=== PATIENT | male | born 1945 | race Caucasian/White ===

== ENCOUNTER 2018-02-05 13:56 | Inpatient (IN) | payer MEDICARE ==
[~2018-02-05] VITALS: Ht 182.9 cm; Wt 104.3 kg
[~2018-02-05 13:56] MED LIST: ALPR-475 PO; CHOL500050 PO; CLON0.2T10 PO; CLON1TAB PO; DABI75CA3 PO; DOXA8TAB63 PO; ENAL10TA71 PO; FEBU40TA PO; FLAX340P PO; FURO20TA3 PO; GEMF600T3 PO; HYDR-3342 PO; LEVO25TA4 PO; METO25TA91 PO; POTA10TA PO; UBID100C24 PO; ZOLP10TA PO
[2018-02-05 17:13] VITALS: BP 119/85
[2018-02-05] MEDS ORDERED: LABETALOL 5MG/ML, 20ML IVPush PRN (18:00)
[2018-02-05] MEDS ORDERED: HYDROcodone/APAP 5/325 TABLET PO PRN (18:00)
[2018-02-05] MEDS ORDERED: ZOLPIDEM 10MG TABLET PO PRN (18:00)
[2018-02-05] MEDS ORDERED: ONDANSETRON 2MG/ML, 2ML IVPush PRN (18:00)
[2018-02-05] MEDS ORDERED: ACETAMINOPHEN 325 MG TABLET PO PRN (18:00)
[2018-02-05] MEDS ORDERED: PLEASE ENTER HEIGHT AND WEIGHT MC SCH (18:00)
[2018-02-05] MEDS ORDERED: hydrALAzine 20 MG/ML, 1ML IVPush PRN (18:00)
[2018-02-05 18:57] LABS: BASOPHILS # (AUTO) 0.05 x10^3/uL (0-0.1); BASOPHILS % (AUTO) 1 % (0-1); EOSINOPHILS # (AUTO) 0.08 x10^3/uL (0-0.4); EOSINOPHILS % (AUTO) 1 % (1-7); LYMPHOCYTES # (AUTO) 1.29 x10^3/uL (1-3.4); LYMPHOCYTES % (AUTO) 15 % (22-44); MD NO; MEAN CORPUSCULAR HGB CONC 33.8 g/dL (33.2-36.2); MEAN CORPUSCULAR VOLUME 100.6 fL (81-97); MEAN PLATELET VOLUME 9.3 fL (7.4-10.4); MONOCYTES # (AUTO) 1.26 x10^3/uL (0.2-0.8); MONOCYTES % (AUTO) 14 % (2-9); NEUTROPHILS % (AUTO) 70 % (42-75); PLATELET COUNT 198 x10^3/uL (130-400); RED BLOOD COUNT 3.18 x10^6/uL (4.38-5.82); RED CELL DISTRIBUTION WIDTH 17.6 % (9.4-14.8)
[2018-02-05 19:03] LABS: ALANINE AMINOTRANSFERASE 31 U/L (12-78); ALBUMIN 3.5 g/dL (3.4-5.0); ANION GAP 16 mmol/L (5-15); CALCIUM 9.9 mg/dL (8.5-10.1); CHLORIDE 94 mmol/L (98-107)
[2018-02-05 19:05] LABS: ALKALINE PHOSPHATASE 87 U/L (45-117); TOTAL PROTEIN 7.9 g/dL (6.4-8.2)
[2018-02-05 20:00] VITALS: BP 137/83
[2018-02-05] MEDS ORDERED: DABIGATRAN 75 MG CAPSULE PO SCH (21:00)
[2018-02-05] MEDS ORDERED: UBIDECARENONE 50 MG PO SCH (21:00)
[2018-02-05 21:33] VITALS: BP 124/79
[2018-02-05] MEDS: POTASSIUM CHLORIDE 20 MEQ TAB.ER.PRT PO SCH (22:03)
[2018-02-05] MEDS: DOXAZOSIN 2MG TABLET PO SCH (22:04)
[2018-02-05] MEDS: ENALAPRIL 20MG TABLET PO SCH (22:04)
[2018-02-05] MEDS: METOPROLOL SUCCINATE 25 MG TAB.ER.24H PO SCH (22:04)
[2018-02-05] MEDS: GEMFIBROZIL 600 MG TABLET PO SCH (22:05)
[2018-02-06] VITALS (13 sets, daily range): BP systolic 77–123; BP diastolic 44–77
[2018-02-06] MEDS ORDERED: SODIUM CHLORIDE 0.9%, 500ML IVBOLUS ONE (05:00)
[2018-02-06] MEDS ORDERED: LEVOTHYROXINE 25 MCG TABLET PO SCH (09:00)
[2018-02-06] MEDS: METOPROLOL SUCCINATE 25 MG TAB.ER.24H PO SCH (09:00)
[2018-02-06] MEDS: DOXAZOSIN 2MG TABLET PO SCH (09:00)
[2018-02-06] MEDS ORDERED: FUROSEMIDE 20 MG TABLET PO SCH (09:00)
[2018-02-06] MEDS ORDERED: FLAXSEED PO SCH (09:00)
[2018-02-06] MEDS: ENALAPRIL 20MG TABLET PO SCH (09:00)
[2018-02-06] MEDS ORDERED: FEBUXOSTAT 40 MG TABLET PO SCH (09:00)
[2018-02-06] MEDS: POTASSIUM CHLORIDE 20 MEQ TAB.ER.PRT PO SCH (09:31)
[2018-02-06] MEDS: GEMFIBROZIL 600 MG TABLET PO SCH (09:36)
[2018-02-06 11:07] LABS: INTERNATIONAL NORMALIZED RATIO 1.49 (0.93-1.1); PROTHROMBIN TIME 15.4 Seconds (9.6-11.5)
[2018-02-06] MEDS ORDERED: CALCIUM ACETATE 667 MG CAPSULE PO SCH ×2 (13:25→16:00)
[2018-02-06] MEDS ORDERED: WARF5TAB PO-COUM (14:16)
[2018-02-06] MEDS ORDERED: CALC667C PO (14:16)
[2018-02-06] MEDS ORDERED: WARFARIN 5 MG TABLET PO-COUM SCH (18:00)
[2018-02-07] MEDS ORDERED: ERGOCALCIFEROL 50,000 UNIT CAPSULE PO SCH (09:00)
== END 2018-02-06 18:39 | DRG 308 ==
LOC: 5SO 17:10
PROVIDERS: ADMIT Hospitalist; ATTEND Internal Medicine
DX: I48.91 Unspecified atrial fibrillation (principal); N18.6 End stage renal disease; R45.851 Suicidal ideations; I12.0 Hypertensive chronic kidney disease with stage 5 chronic kidney disease or end stage renal disease; E03.9 Hypothyroidism, unspecified; E11.22 Type 2 diabetes mellitus with diabetic chronic kidney disease; E11.40 Type 2 diabetes mellitus with diabetic neuropathy, unspecified; E78.5 Hyperlipidemia, unspecified; F41.9 Anxiety disorder, unspecified; D63.1 Anemia in chronic kidney disease; F32.9 Major depressive disorder, single episode, unspecified; Z96.619 Presence of unspecified artificial shoulder joint; G47.30 Sleep apnea, unspecified; Z80.9 Family history of malignant neoplasm, unspecified; Z82.49 Family history of ischemic heart disease and other diseases of the circulatory system; Z91.19 Patient's noncompliance with other medical treatment and regimen; Z99.2 Dependence on renal dialysis; Z90.89 Acquired absence of other organs; Z95.828 Presence of other vascular implants and grafts
CPT/HCPCS: 36415; 70450; 80053; 82962; 85025; 85610; 86704; 86706; 86803; 87340; 93005; 93306; J2405; J7040

== ENCOUNTER 2018-02-06 13:50 | Inpatient (IN) | payer MEDICARE ==
[~2018-02-06] VITALS: Ht 182.9 cm; Wt 101.7 kg
[~2018-02-06 13:50] MED LIST changes: -GEMF600T3 PO; +GEMF600T4 PO
[2018-02-06] MEDS ORDERED: WARF5TAB PO-COUM (14:16)
[2018-02-06] MEDS ORDERED: CALC667C PO (14:16)
[2018-02-06 20:00] VITALS: BP 113/68
[2018-02-06] MEDS ORDERED: ACETAMINOPHEN 325 MG TABLET PO PRN (20:30)
[2018-02-06] MEDS ORDERED: WARFARIN 5 MG TABLET PO-COUM SCH (20:30)
[2018-02-06] MEDS ORDERED: DOCUSATE 100 MG CAPSULE PO PRN (20:30)
[2018-02-06] MEDS ORDERED: HYDROcodone/APAP 5/325 TABLET PO PRN (20:30)
[2018-02-06] MEDS ORDERED: ZOLPIDEM 5MG TABLET PO PRN (20:30)
[2018-02-06] MEDS ORDERED: ONDANSETRON 2MG/ML, 2ML IVPush PRN (20:30)
[2018-02-06] MEDS ORDERED: DOXAZOSIN 2MG TABLET PO SCH (21:00)
[2018-02-06] MEDS ORDERED: METOPROLOL SUCCINATE 25 MG TAB.ER.24H PO SCH (21:00)
[2018-02-06 21:43] VITALS: BP 98/76
[2018-02-06] MEDS ORDERED: POLYETHYLENE GLYCOL 17 GM PACKET PO PRN (22:30)
[2018-02-06] MEDS ORDERED: BISACODYL 10 MG SUPP PR PRN (22:30)
[2018-02-06 22:35] VITALS: BP 129/70
[2018-02-06] MEDS: METOPROLOL SUCCINATE 25 MG TAB.ER.24H PO SCH (22:42)
[2018-02-07] MEDS: LEVOTHYROXINE 25 MCG TABLET PO SCH (05:14)
[2018-02-07 05:29] LABS: INTERNATIONAL NORMALIZED RATIO 1.4 (0.93-1.1); PROTHROMBIN TIME 14.5 Seconds (9.6-11.5)
[2018-02-07 06:10] LABS: CHOL/HDL RATIO 5.1; FOLATE LEVEL 7.1 ng/mL (3.1-17.5); FREE T4 (FREE THYROXINE) 1.11 ng/dL (0.76-1.46); LDL/HDL RATIO 2.7 (0.5-3.0); THYROID STIMULATING HORMONE 2.08 mIU/L (0.358-3.740)
[2018-02-07 07:38] VITALS: BP 106/58
[2018-02-07] MEDS: CALCIUM ACETATE 667 MG CAPSULE PO SCH ×3 (07:51→17:13)
[2018-02-07] MEDS: GEMFIBROZIL 600 MG TABLET PO SCH ×2 (08:39→20:34)
[2018-02-07] MEDS: DABIGATRAN 150 MG CAPSULE PO SCH ×2 (08:39→20:34)
[2018-02-07] MEDS: ERGOCALCIFEROL 50,000 UNIT CAPSULE PO SCH (08:40)
[2018-02-07] MEDS: FEBUXOSTAT 40 MG TABLET PO SCH (08:40)
[2018-02-07] MEDS ORDERED: CALCIUM ACETATE 667 MG CAPSULE PO SCH (09:00)
[2018-02-07 17:33] LABS: MICROSCOPIC AUTO
[2018-02-07 17:38] LABS: CULTURE INDICATED? NO
[2018-02-07 19:59] VITALS: BP 106/63
[2018-02-07] MEDS: SODIUM CHLORIDE FLUSH 10ML SYR IVF SCH (20:34)
[2018-02-08] MEDS: LEVOTHYROXINE 25 MCG TABLET PO SCH (06:14)
[2018-02-08 07:23] VITALS: BP 132/83
[2018-02-08] MEDS: CALCIUM ACETATE 667 MG CAPSULE PO SCH ×4 (08:12→21:34)
[2018-02-08] MEDS: SODIUM CHLORIDE FLUSH 10ML SYR IVF SCH ×2 (09:00→21:00)
[2018-02-08] MEDS: DABIGATRAN 150 MG CAPSULE PO SCH ×2 (09:01→21:33)
[2018-02-08] MEDS: SERTRALINE 50MG TABLET PO SCH (09:01)
[2018-02-08] MEDS: FEBUXOSTAT 40 MG TABLET PO SCH (09:01)
[2018-02-08] MEDS: METOPROLOL SUCCINATE 25 MG TAB.ER.24H PO SCH (09:01)
[2018-02-08] MEDS: GEMFIBROZIL 600 MG TABLET PO SCH ×2 (09:06→21:33)
[2018-02-08 16:20] LABS: ALANINE AMINOTRANSFERASE 49 U/L (12-78); ALBUMIN 3.3 g/dL (3.4-5.0); ANION GAP 12 mmol/L (5-15); CALCIUM 10.4 mg/dL (8.5-10.1); CHLORIDE 98 mmol/L (98-107)
[2018-02-08 16:22] LABS: ALKALINE PHOSPHATASE 77 U/L (45-117); BILIRUBIN,TOTAL 0.6 mg/dL (0.2-1.0)
[2018-02-08 16:49] LABS: BASOPHILS # (AUTO) 0.02 x10^3/uL (0-0.1); BASOPHILS % (AUTO) 0 % (0-1); EOSINOPHILS # (AUTO) 0.08 x10^3/uL (0-0.4); EOSINOPHILS % (AUTO) 1 % (1-7); LYMPHOCYTES # (AUTO) 0.79 x10^3/uL (1-3.4); LYMPHOCYTES % (AUTO) 14 % (22-44); MD NO; MEAN CORPUSCULAR HEMOGLOBIN 34.9 pg (27.5-34.5); MEAN CORPUSCULAR HGB CONC 34.6 g/dL (33.2-36.2); MEAN CORPUSCULAR VOLUME 100.9 fL (81-97); MEAN PLATELET VOLUME 8.9 fL (7.4-10.4); MONOCYTES # (AUTO) 0.85 x10^3/uL (0.2-0.8); MONOCYTES % (AUTO) 15 % (2-9); NEUTROPHILS # (AUTO) 3.91 x10^3/uL (1.8-6.8); NEUTROPHILS % (AUTO) 69 % (42-75); PLATELET COUNT 167 x10^3/uL (130-400); RED BLOOD COUNT 2.61 x10^6/uL (4.38-5.82); RED CELL DISTRIBUTION WIDTH 17.7 % (9.4-14.8)
[2018-02-08 19:57] VITALS: BP 133/81
[2018-02-09] MEDS: LEVOTHYROXINE 25 MCG TABLET PO SCH (05:45)
[2018-02-09 07:53] VITALS: BP 137/78
[2018-02-09] MEDS: CALCIUM ACETATE 667 MG CAPSULE PO SCH ×3 (08:26→17:04)
[2018-02-09] MEDS: METOPROLOL SUCCINATE 25 MG TAB.ER.24H PO SCH (08:27)
[2018-02-09] MEDS: DABIGATRAN 150 MG CAPSULE PO SCH ×2 (08:27→19:47)
[2018-02-09] MEDS: GEMFIBROZIL 600 MG TABLET PO SCH ×2 (08:27→19:48)
[2018-02-09] MEDS: FEBUXOSTAT 40 MG TABLET PO SCH (08:27)
[2018-02-09] MEDS: SERTRALINE 50MG TABLET PO SCH (08:27)
[2018-02-09] MEDS: SODIUM CHLORIDE FLUSH 10ML SYR IVF SCH (08:35)
[2018-02-09 13:56] VITALS: BP 120/63
[2018-02-09 19:30] VITALS: BP 110/71
[2018-02-10] MEDS: LEVOTHYROXINE 25 MCG TABLET PO SCH (05:50)
[2018-02-10] MEDS: CALCIUM ACETATE 667 MG CAPSULE PO SCH ×3 (08:10→17:07)
[2018-02-10 08:40] VITALS: BP 150/106
[2018-02-10] MEDS: DABIGATRAN 150 MG CAPSULE PO SCH ×2 (09:16→21:34)
[2018-02-10] MEDS: GEMFIBROZIL 600 MG TABLET PO SCH ×2 (09:16→21:34)
[2018-02-10] MEDS: FEBUXOSTAT 40 MG TABLET PO SCH (09:17)
[2018-02-10] MEDS: SERTRALINE 50MG TABLET PO SCH (09:17)
[2018-02-10] MEDS: METOPROLOL SUCCINATE 25 MG TAB.ER.24H PO SCH (09:17)
[2018-02-10] MEDS: GABAPENTIN 100 MG CAPSULE PO SCH (18:39)
[2018-02-10 20:00] VITALS: BP 141/85
[2018-02-11] MEDS: LEVOTHYROXINE 25 MCG TABLET PO SCH (05:50)
[2018-02-11] MEDS: CALCIUM ACETATE 667 MG CAPSULE PO SCH ×3 (07:42→16:57)
[2018-02-11] MEDS: FEBUXOSTAT 40 MG TABLET PO SCH (07:53)
[2018-02-11] MEDS: DABIGATRAN 150 MG CAPSULE PO SCH ×2 (07:53→20:40)
[2018-02-11] MEDS: METOPROLOL SUCCINATE 25 MG TAB.ER.24H PO SCH (07:53)
[2018-02-11] MEDS: SERTRALINE 50MG TABLET PO SCH (07:54)
[2018-02-11] MEDS: GEMFIBROZIL 600 MG TABLET PO SCH ×2 (07:54→20:40)
[2018-02-11 07:57] VITALS: BP 164/106
[2018-02-11 13:11] VITALS: BP 136/88
[2018-02-11] MEDS: GABAPENTIN 100 MG CAPSULE PO SCH (17:00)
[2018-02-11 19:35] VITALS: BP 123/78
[2018-02-12] MEDS: LEVOTHYROXINE 25 MCG TABLET PO SCH (05:24)
[2018-02-12] MEDS: CALCIUM ACETATE 667 MG CAPSULE PO SCH ×3 (07:48→16:51)
[2018-02-12 07:51] VITALS: BP 166/84
[2018-02-12] MEDS: FEBUXOSTAT 40 MG TABLET PO SCH (09:23)
[2018-02-12] MEDS: DABIGATRAN 150 MG CAPSULE PO SCH ×2 (09:23→20:18)
[2018-02-12] MEDS: GEMFIBROZIL 600 MG TABLET PO SCH ×2 (09:24→20:17)
[2018-02-12] MEDS: METOPROLOL SUCCINATE 25 MG TAB.ER.24H PO SCH (09:24)
[2018-02-12] MEDS: SERTRALINE 50MG TABLET PO SCH (09:24)
[2018-02-12 19:47] VITALS: BP 159/95
[2018-02-12] MEDS: GABAPENTIN 100 MG CAPSULE PO SCH (20:17)
[2018-02-12] MEDS: DOXEPIN 25 MG CAPSULE PO SCH (20:18)
[2018-02-13] MEDS: LEVOTHYROXINE 25 MCG TABLET PO SCH (05:08)
[2018-02-13 05:55] LABS: BASOPHILS # (AUTO) 0.03 x10^3/uL (0-0.1); BASOPHILS % (AUTO) 0 % (0-1); EOSINOPHILS # (AUTO) 0.09 x10^3/uL (0-0.4); EOSINOPHILS % (AUTO) 1 % (1-7); LYMPHOCYTES # (AUTO) 1.14 x10^3/uL (1-3.4); LYMPHOCYTES % (AUTO) 15 % (22-44); MD NO; MEAN CORPUSCULAR HEMOGLOBIN 34.2 pg (27.5-34.5); MEAN CORPUSCULAR HGB CONC 33.6 g/dL (33.2-36.2); MEAN CORPUSCULAR VOLUME 101.9 fL (81-97); MEAN PLATELET VOLUME 8.6 fL (7.4-10.4); MONOCYTES # (AUTO) 1.14 x10^3/uL (0.2-0.8); MONOCYTES % (AUTO) 15 % (2-9); NEUTROPHILS # (AUTO) 5.23 x10^3/uL (1.8-6.8); NEUTROPHILS % (AUTO) 69 % (42-75); PLATELET COUNT 197 x10^3/uL (130-400); RED BLOOD COUNT 2.89 x10^6/uL (4.38-5.82)
[2018-02-13 06:05] LABS: ALBUMIN 3.3 g/dL (3.4-5.0); CHLORIDE 96 mmol/L (98-107)
[2018-02-13 06:08] LABS: ANION GAP 14 mmol/L (5-15); CALCIUM 11.2 mg/dL (8.5-10.1); CREATININE 9.63 mg/dL (0.7-1.3)
[2018-02-13 07:42] VITALS: BP 150/87
[2018-02-13] MEDS: CALCIUM ACETATE 667 MG CAPSULE PO SCH ×3 (08:06→18:03)
[2018-02-13] MEDS: FEBUXOSTAT 40 MG TABLET PO SCH (08:33)
[2018-02-13] MEDS: GEMFIBROZIL 600 MG TABLET PO SCH ×2 (08:33→20:29)
[2018-02-13] MEDS: METOPROLOL SUCCINATE 25 MG TAB.ER.24H PO SCH (08:33)
[2018-02-13] MEDS: DABIGATRAN 150 MG CAPSULE PO SCH ×2 (08:33→20:29)
[2018-02-13] MEDS: SERTRALINE 50MG TABLET PO SCH (08:34)
[2018-02-13] MEDS: GABAPENTIN 100 MG CAPSULE PO SCH (18:03)
[2018-02-13 18:36] VITALS: BP 139/81
[2018-02-13 19:39] VITALS: BP 125/82
[2018-02-13] MEDS: DOXEPIN 25 MG CAPSULE PO SCH (20:30)
[2018-02-14] MEDS: LEVOTHYROXINE 25 MCG TABLET PO SCH (05:37)
[2018-02-14 08:06] VITALS: BP 158/94
[2018-02-14] MEDS: CALCIUM ACETATE 667 MG CAPSULE PO SCH ×3 (08:53→17:05)
[2018-02-14] MEDS: METOPROLOL SUCCINATE 25 MG TAB.ER.24H PO SCH (08:53)
[2018-02-14] MEDS: ERGOCALCIFEROL 50,000 UNIT CAPSULE PO SCH (08:53)
[2018-02-14] MEDS: FEBUXOSTAT 40 MG TABLET PO SCH (08:54)
[2018-02-14] MEDS: DABIGATRAN 150 MG CAPSULE PO SCH ×2 (08:55→20:33)
[2018-02-14] MEDS: SERTRALINE 50MG TABLET PO SCH (08:55)
[2018-02-14] MEDS: GEMFIBROZIL 600 MG TABLET PO SCH ×2 (08:55→20:34)
[2018-02-14] MEDS: GABAPENTIN 100 MG CAPSULE PO SCH (18:01)
[2018-02-14 19:39] VITALS: BP 140/85
[2018-02-14] MEDS: DOXEPIN 25 MG CAPSULE PO SCH (20:33)
[2018-02-15] MEDS: LEVOTHYROXINE 25 MCG TABLET PO SCH (05:38)
[2018-02-15 07:45] VITALS: BP 150/93
[2018-02-15] MEDS: CALCIUM ACETATE 667 MG CAPSULE PO SCH ×3 (08:09→17:10)
[2018-02-15] MEDS: FEBUXOSTAT 40 MG TABLET PO SCH (08:47)
[2018-02-15] MEDS: GEMFIBROZIL 600 MG TABLET PO SCH ×2 (08:47→20:49)
[2018-02-15] MEDS: SERTRALINE 50MG TABLET PO SCH (08:47)
[2018-02-15] MEDS: METOPROLOL SUCCINATE 25 MG TAB.ER.24H PO SCH (08:47)
[2018-02-15] MEDS: DABIGATRAN 150 MG CAPSULE PO SCH ×2 (08:48→20:49)
[2018-02-15] MEDS: GUAIFENESIN ER 600 MG TABLET PO SCH ×2 (12:00→20:49)
[2018-02-15 16:00] VITALS: BP 133/83
[2018-02-15] MEDS: GABAPENTIN 100 MG CAPSULE PO SCH (18:33)
[2018-02-15 20:01] VITALS: BP 143/104
[2018-02-15] MEDS: DOXEPIN 25 MG CAPSULE PO SCH (20:49)
[2018-02-16] MEDS: LEVOTHYROXINE 25 MCG TABLET PO SCH (05:38)
[2018-02-16 06:23] LABS: BASOPHILS # (AUTO) 0.08 x10^3/uL (0-0.1); BASOPHILS % (AUTO) 1 % (0-1); EOSINOPHILS # (AUTO) 0.06 x10^3/uL (0-0.4); EOSINOPHILS % (AUTO) 1 % (1-7); LYMPHOCYTES # (AUTO) 1.04 x10^3/uL (1-3.4); LYMPHOCYTES % (AUTO) 12 % (22-44); MD NO; MEAN CORPUSCULAR HEMOGLOBIN 33.9 pg (27.5-34.5); MEAN CORPUSCULAR HGB CONC 33.5 g/dL (33.2-36.2); MEAN PLATELET VOLUME 8.9 fL (7.4-10.4); MONOCYTES # (AUTO) 1.15 x10^3/uL (0.2-0.8); MONOCYTES % (AUTO) 13 % (2-9); NEUTROPHILS # (AUTO) 6.65 x10^3/uL (1.8-6.8); NEUTROPHILS % (AUTO) 74 % (42-75); PLATELET COUNT 201 x10^3/uL (130-400); RED BLOOD COUNT 3.14 x10^6/uL (4.38-5.82); RED CELL DISTRIBUTION WIDTH 17.4 % (9.4-14.8)
[2018-02-16 06:34] LABS: ALBUMIN 3.5 g/dL (3.4-5.0); ANION GAP 13 mmol/L (5-15); CALCIUM 12.9 mg/dL (8.5-10.1); CHLORIDE 99 mmol/L (98-107)
[2018-02-16 07:38] VITALS: BP 159/92
[2018-02-16] MEDS: CALCIUM ACETATE 667 MG CAPSULE PO SCH ×3 (07:51→19:40)
[2018-02-16] MEDS: FEBUXOSTAT 40 MG TABLET PO SCH (08:29)
[2018-02-16] MEDS: SERTRALINE 50MG TABLET PO SCH (08:29)
[2018-02-16] MEDS: GUAIFENESIN ER 600 MG TABLET PO SCH ×2 (08:29→20:36)
[2018-02-16] MEDS: DABIGATRAN 150 MG CAPSULE PO SCH ×2 (08:29→20:36)
[2018-02-16] MEDS: GEMFIBROZIL 600 MG TABLET PO SCH ×2 (08:29→20:36)
[2018-02-16] MEDS: METOPROLOL SUCCINATE 25 MG TAB.ER.24H PO SCH (09:36)
[2018-02-16] MEDS: GABAPENTIN 100 MG CAPSULE PO SCH (19:40)
[2018-02-16 19:50] VITALS: BP 146/85
[2018-02-16] MEDS: DOXEPIN 25 MG CAPSULE PO SCH (20:37)
[2018-02-16] MEDS ORDERED: SODIUM CHLORIDE FLUSH 10ML SYR IVF SCH (21:00)
[2018-02-17] MEDS: LEVOTHYROXINE 25 MCG TABLET PO SCH (05:38)
[2018-02-17 07:37] VITALS: BP 149/99
[2018-02-17] MEDS: CALCIUM ACETATE 667 MG CAPSULE PO SCH ×3 (07:48→16:52)
[2018-02-17] MEDS: FEBUXOSTAT 40 MG TABLET PO SCH (08:11)
[2018-02-17] MEDS: SERTRALINE 100MG TABLET PO SCH (08:12)
[2018-02-17] MEDS: GEMFIBROZIL 600 MG TABLET PO SCH ×2 (08:12→21:34)
[2018-02-17] MEDS: DABIGATRAN 150 MG CAPSULE PO SCH ×2 (08:12→21:34)
[2018-02-17] MEDS: GUAIFENESIN ER 600 MG TABLET PO SCH ×2 (08:12→21:34)
[2018-02-17] MEDS: METOPROLOL SUCCINATE 25 MG TAB.ER.24H PO SCH (08:12)
[2018-02-17] MEDS: GABAPENTIN 100 MG CAPSULE PO SCH (16:53)
[2018-02-17 20:18] VITALS: BP 160/93
[2018-02-17] MEDS: DOXEPIN 25 MG CAPSULE PO SCH (21:34)
[2018-02-18] MEDS: LEVOTHYROXINE 25 MCG TABLET PO SCH (06:39)
[2018-02-18 07:20] VITALS: BP 157/103
[2018-02-18] MEDS: CALCIUM ACETATE 667 MG CAPSULE PO SCH ×3 (07:48→17:53)
[2018-02-18] MEDS: SERTRALINE 100MG TABLET PO SCH (08:39)
[2018-02-18] MEDS: DABIGATRAN 150 MG CAPSULE PO SCH ×2 (08:39→20:55)
[2018-02-18] MEDS: GUAIFENESIN ER 600 MG TABLET PO SCH ×2 (08:39→20:53)
[2018-02-18] MEDS: METOPROLOL SUCCINATE 25 MG TAB.ER.24H PO SCH (08:39)
[2018-02-18] MEDS: FEBUXOSTAT 40 MG TABLET PO SCH (08:39)
[2018-02-18] MEDS: GEMFIBROZIL 600 MG TABLET PO SCH ×2 (08:39→20:55)
[2018-02-18] MEDS: GABAPENTIN 100 MG CAPSULE PO SCH (18:17)
[2018-02-18 19:41] VITALS: BP 131/77
[2018-02-18] MEDS: DOXEPIN 25 MG CAPSULE PO SCH (20:55)
[2018-02-19] MEDS: LEVOTHYROXINE 25 MCG TABLET PO SCH (05:19)
[2018-02-19 07:00] VITALS: BP 151/95
[2018-02-19] MEDS: FEBUXOSTAT 40 MG TABLET PO SCH (08:04)
[2018-02-19] MEDS: CALCIUM ACETATE 667 MG CAPSULE PO SCH ×3 (08:08→17:01)
[2018-02-19] MEDS: GUAIFENESIN ER 600 MG TABLET PO SCH ×2 (08:08→20:20)
[2018-02-19] MEDS: DABIGATRAN 150 MG CAPSULE PO SCH ×2 (08:08→20:21)
[2018-02-19] MEDS: SERTRALINE 100MG TABLET PO SCH (08:08)
[2018-02-19] MEDS: GEMFIBROZIL 600 MG TABLET PO SCH ×2 (08:09→20:21)
[2018-02-19] MEDS: METOPROLOL SUCCINATE 25 MG TAB.ER.24H PO SCH (08:09)
[2018-02-19] MEDS: GABAPENTIN 100 MG CAPSULE PO SCH (17:01)
[2018-02-19 19:52] VITALS: BP 151/91
[2018-02-19] MEDS: DOXEPIN 25 MG CAPSULE PO SCH (20:21)
[2018-02-20] MEDS: LEVOTHYROXINE 25 MCG TABLET PO SCH (04:26)
[2018-02-20 07:25] VITALS: BP 152/82
[2018-02-20] MEDS: CALCIUM ACETATE 667 MG CAPSULE PO SCH ×3 (08:04→17:00)
[2018-02-20] MEDS: SERTRALINE 100MG TABLET PO SCH (09:20)
[2018-02-20] MEDS: FEBUXOSTAT 40 MG TABLET PO SCH (09:20)
[2018-02-20] MEDS: DABIGATRAN 150 MG CAPSULE PO SCH ×2 (09:21→20:31)
[2018-02-20] MEDS: METOPROLOL SUCCINATE 25 MG TAB.ER.24H PO SCH (09:21)
[2018-02-20] MEDS: GUAIFENESIN ER 600 MG TABLET PO SCH ×2 (09:22→20:31)
[2018-02-20] MEDS: GEMFIBROZIL 600 MG TABLET PO SCH ×2 (09:33→20:31)
[2018-02-20] MEDS: GABAPENTIN 100 MG CAPSULE PO SCH (18:00)
[2018-02-20 20:00] VITALS: BP 139/86
[2018-02-20] MEDS: DOXEPIN 25 MG CAPSULE PO SCH (20:30)
[2018-02-20] MEDS ORDERED: CALCIUM ACETATE 667 MG CAPSULE PO ONE (21:00)
[2018-02-21] MEDS: LEVOTHYROXINE 25 MCG TABLET PO SCH (06:15)
[2018-02-21 07:53] VITALS: BP 162/87
[2018-02-21] MEDS: CALCIUM ACETATE 667 MG CAPSULE PO SCH ×3 (08:07→17:15)
[2018-02-21] MEDS: SERTRALINE 100MG TABLET PO SCH (08:07)
[2018-02-21] MEDS: GEMFIBROZIL 600 MG TABLET PO SCH ×2 (08:07→19:51)
[2018-02-21] MEDS: METOPROLOL SUCCINATE 25 MG TAB.ER.24H PO SCH (08:08)
[2018-02-21] MEDS: ERGOCALCIFEROL 50,000 UNIT CAPSULE PO SCH (08:08)
[2018-02-21] MEDS: DABIGATRAN 150 MG CAPSULE PO SCH ×2 (08:08→19:51)
[2018-02-21] MEDS: FEBUXOSTAT 40 MG TABLET PO SCH (08:08)
[2018-02-21] MEDS: GUAIFENESIN ER 600 MG TABLET PO SCH ×2 (08:09→19:51)
[2018-02-21] MEDS: GABAPENTIN 100 MG CAPSULE PO SCH (17:54)
[2018-02-21] MEDS: DOXEPIN 25 MG CAPSULE PO SCH (19:51)
[2018-02-21 19:53] VITALS: BP 152/85
[2018-02-22] MEDS: LEVOTHYROXINE 25 MCG TABLET PO SCH (05:41)
[2018-02-22 05:48] LABS: BASOPHILS # (AUTO) 0.07 x10^3/uL (0-0.1); BASOPHILS % (AUTO) 1 % (0-1); EOSINOPHILS # (AUTO) 0.11 x10^3/uL (0-0.4); EOSINOPHILS % (AUTO) 1 % (1-7); LYMPHOCYTES % (AUTO) 15 % (22-44); MD NO; MEAN CORPUSCULAR HGB CONC 33.3 g/dL (33.2-36.2); MEAN CORPUSCULAR VOLUME 99.1 fL (81-97); MEAN PLATELET VOLUME 9.1 fL (7.4-10.4); MONOCYTES # (AUTO) 1.24 x10^3/uL (0.2-0.8); MONOCYTES % (AUTO) 16 % (2-9); NEUTROPHILS # (AUTO) 5.25 x10^3/uL (1.8-6.8); NEUTROPHILS % (AUTO) 67 % (42-75); PLATELET COUNT 195 x10^3/uL (130-400); RED BLOOD COUNT 3.17 x10^6/uL (4.38-5.82); RED CELL DISTRIBUTION WIDTH 17.6 % (9.4-14.8)
[2018-02-22 06:01] LABS: ALBUMIN 3.4 g/dL (3.4-5.0); ANION GAP 11 mmol/L (5-15); CALCIUM 11.4 mg/dL (8.5-10.1); CHLORIDE 99 mmol/L (98-107); CREATININE 8.16 mg/dL (0.7-1.3); IRON LEVEL 48 mcg/dL (65-175)
[2018-02-22 06:05] LABS: % IRON SATURATION 14 % (20-55); TOTAL IRON BINDING CAPACITY 336 mcg/dL (250-450)
[2018-02-22 08:06] VITALS: BP 168/103
[2018-02-22] MEDS: CALCIUM ACETATE 667 MG CAPSULE PO SCH ×3 (08:17→17:02)
[2018-02-22] MEDS: SERTRALINE 100MG TABLET PO SCH (08:26)
[2018-02-22] MEDS: GEMFIBROZIL 600 MG TABLET PO SCH ×2 (08:26→20:55)
[2018-02-22] MEDS: DABIGATRAN 150 MG CAPSULE PO SCH ×2 (08:27→20:55)
[2018-02-22] MEDS: GUAIFENESIN ER 600 MG TABLET PO SCH ×2 (08:29→20:55)
[2018-02-22] MEDS: METOPROLOL SUCCINATE 25 MG TAB.ER.24H PO SCH (08:30)
[2018-02-22] MEDS: FEBUXOSTAT 40 MG TABLET PO SCH (08:31)
[2018-02-22 14:07] VITALS: BP 150/84
[2018-02-22] MEDS: GABAPENTIN 100 MG CAPSULE PO SCH (18:03)
[2018-02-22 19:37] VITALS: BP 154/99
[2018-02-22] MEDS: DOXEPIN 25 MG CAPSULE PO SCH (20:55)
[2018-02-23] MEDS: LEVOTHYROXINE 25 MCG TABLET PO SCH (05:43)
[2018-02-23 05:52] LABS: BASOPHILS # (AUTO) 0.03 x10^3/uL (0-0.1); BASOPHILS % (AUTO) 0 % (0-1); CHLORIDE 97 mmol/L (98-107); EOSINOPHILS % (AUTO) 1 % (1-7); LYMPHOCYTES # (AUTO) 1.15 x10^3/uL (1-3.4); LYMPHOCYTES % (AUTO) 15 % (22-44); MD NO; MEAN CORPUSCULAR HEMOGLOBIN 32.8 pg (27.5-34.5); MEAN CORPUSCULAR HGB CONC 33.1 g/dL (33.2-36.2); MEAN CORPUSCULAR VOLUME 98.8 fL (81-97); MEAN PLATELET VOLUME 9.5 fL (7.4-10.4); MONOCYTES # (AUTO) 1.11 x10^3/uL (0.2-0.8); MONOCYTES % (AUTO) 14 % (2-9); NEUTROPHILS # (AUTO) 5.58 x10^3/uL (1.8-6.8); NEUTROPHILS % (AUTO) 70 % (42-75); PLATELET COUNT 193 x10^3/uL (130-400); RED BLOOD COUNT 3.05 x10^6/uL (4.38-5.82); RED CELL DISTRIBUTION WIDTH 17.1 % (9.4-14.8)
[2018-02-23 05:57] LABS: ALBUMIN 3.4 g/dL (3.4-5.0); ANION GAP 14 mmol/L (5-15); CALCIUM 12.1 mg/dL (8.5-10.1); CREATININE 9.25 mg/dL (0.7-1.3)
[2018-02-23 07:39] VITALS: BP 157/111
[2018-02-23] MEDS: CALCIUM ACETATE 667 MG CAPSULE PO SCH ×3 (08:03→17:14)
[2018-02-23] MEDS: DABIGATRAN 150 MG CAPSULE PO SCH ×2 (08:13→21:12)
[2018-02-23] MEDS: SERTRALINE 100MG TABLET PO SCH (08:13)
[2018-02-23] MEDS: FEBUXOSTAT 40 MG TABLET PO SCH (08:14)
[2018-02-23] MEDS: GUAIFENESIN ER 600 MG TABLET PO SCH ×2 (08:14→21:12)
[2018-02-23] MEDS: CARVEDILOL 12.5 MG TABLET PO SCH ×2 (08:20→18:00)
[2018-02-23] MEDS: GEMFIBROZIL 600 MG TABLET PO SCH ×2 (08:21→21:12)
[2018-02-23] MEDS: GABAPENTIN 100 MG CAPSULE PO SCH ×2 (18:00→21:12)
[2018-02-23 18:10] VITALS: BP 148/76
[2018-02-23 20:19] VITALS: BP 138/86
[2018-02-23] MEDS: DOXEPIN 25 MG CAPSULE PO SCH (21:12)
[2018-02-24 05:36] VITALS: BP 136/74
[2018-02-24] MEDS: LEVOTHYROXINE 25 MCG TABLET PO SCH (05:42)
[2018-02-24] MEDS: CARVEDILOL 12.5 MG TABLET PO SCH ×2 (05:42→18:04)
[2018-02-24 08:00] VITALS: BP 113/70
[2018-02-24] MEDS: CALCIUM ACETATE 667 MG CAPSULE PO SCH (08:03)
[2018-02-24] MEDS: DABIGATRAN 150 MG CAPSULE PO SCH ×2 (08:19→21:02)
[2018-02-24] MEDS: GEMFIBROZIL 600 MG TABLET PO SCH ×2 (08:19→21:02)
[2018-02-24] MEDS: GUAIFENESIN ER 600 MG TABLET PO SCH ×2 (08:19→21:02)
[2018-02-24] MEDS: FEBUXOSTAT 40 MG TABLET PO SCH (08:19)
[2018-02-24] MEDS: SERTRALINE 100MG TABLET PO SCH (08:20)
[2018-02-24] MEDS: GABAPENTIN 100 MG CAPSULE PO SCH ×3 (08:20→21:02)
[2018-02-24] MEDS: CINACALCET 30 MG TABLET PO SCH (10:26)
[2018-02-24] MEDS: SEVELAMER CARBONATE 800MG TAB PO SCH ×2 (11:59→17:02)
[2018-02-24 18:00] VITALS: BP 119/66
[2018-02-24 20:50] VITALS: BP 116/73
[2018-02-24] MEDS: DOXEPIN 25 MG CAPSULE PO SCH (21:02)
[2018-02-25 06:15] VITALS: BP 129/74
[2018-02-25] MEDS: CARVEDILOL 12.5 MG TABLET PO SCH ×2 (06:17→17:49)
[2018-02-25] MEDS: LEVOTHYROXINE 25 MCG TABLET PO SCH (06:17)
[2018-02-25 06:55] LABS: BASOPHILS # (AUTO) 0.03 x10^3/uL (0-0.1); BASOPHILS % (AUTO) 1 % (0-1); EOSINOPHILS # (AUTO) 0.12 x10^3/uL (0-0.4); EOSINOPHILS % (AUTO) 2 % (1-7); LYMPHOCYTES # (AUTO) 0.96 x10^3/uL (1-3.4); LYMPHOCYTES % (AUTO) 19 % (22-44); MD NO; MEAN CORPUSCULAR HEMOGLOBIN 32.7 pg (27.5-34.5); MEAN CORPUSCULAR HGB CONC 33.2 g/dL (33.2-36.2); MEAN CORPUSCULAR VOLUME 98.6 fL (81-97); MEAN PLATELET VOLUME 9.2 fL (7.4-10.4); MONOCYTES # (AUTO) 0.81 x10^3/uL (0.2-0.8); MONOCYTES % (AUTO) 16 % (2-9); NEUTROPHILS # (AUTO) 3.25 x10^3/uL (1.8-6.8); NEUTROPHILS % (AUTO) 63 % (42-75); PLATELET COUNT 177 x10^3/uL (130-400); RED BLOOD COUNT 2.96 x10^6/uL (4.38-5.82); RED CELL DISTRIBUTION WIDTH 16.7 % (9.4-14.8)
[2018-02-25 06:58] LABS: ALANINE AMINOTRANSFERASE 15 U/L (12-78); ALBUMIN 3.2 g/dL (3.4-5.0); ANION GAP 11 mmol/L (5-15); CALCIUM 11.1 mg/dL (8.5-10.1); CHLORIDE 97 mmol/L (98-107); CREATININE 8.21 mg/dL (0.7-1.3)
[2018-02-25 07:01] LABS: ALKALINE PHOSPHATASE 87 U/L (45-117); BILIRUBIN,TOTAL 0.7 mg/dL (0.2-1.0); TOTAL PROTEIN 7.1 g/dL (6.4-8.2)
[2018-02-25 07:21] VITALS: BP 116/77
[2018-02-25] MEDS: SEVELAMER CARBONATE 800MG TAB PO SCH ×3 (08:01→17:00)
[2018-02-25] MEDS: GEMFIBROZIL 600 MG TABLET PO SCH ×2 (08:31→21:31)
[2018-02-25] MEDS: GABAPENTIN 100 MG CAPSULE PO SCH ×3 (08:31→21:31)
[2018-02-25] MEDS: GUAIFENESIN ER 600 MG TABLET PO SCH ×2 (08:31→21:32)
[2018-02-25] MEDS: DABIGATRAN 150 MG CAPSULE PO SCH ×2 (08:31→21:31)
[2018-02-25] MEDS: FEBUXOSTAT 40 MG TABLET PO SCH (08:32)
[2018-02-25] MEDS: SERTRALINE 100MG TABLET PO SCH (08:32)
[2018-02-25] MEDS: CINACALCET 30 MG TABLET PO SCH (08:32)
[2018-02-25 13:49] VITALS: BP 102/63
[2018-02-25 17:45] VITALS: BP 137/87
[2018-02-25] MEDS ORDERED: SEVE800T8 PO (18:24)
[2018-02-25] MEDS ORDERED: SERT100T5 PO (18:24)
[2018-02-25] MEDS ORDERED: POLY17PO5 PO (18:24)
[2018-02-25] MEDS ORDERED: DABI150C PO (18:24)
[2018-02-25] MEDS ORDERED: FEBU40TA PO (18:24)
[2018-02-25] MEDS ORDERED: GEMF600T4 PO (18:24)
[2018-02-25] MEDS ORDERED: CARV12.543 PO (18:24)
[2018-02-25] MEDS ORDERED: CINA30TA2 PO (18:24)
[2018-02-25] MEDS ORDERED: LEVO25TA2 PO (18:24)
[2018-02-25] MEDS ORDERED: DOXE25CA PO (18:24)
[2018-02-25] MEDS ORDERED: GUAI600T31 PO (18:24)
[2018-02-25] MEDS ORDERED: GABA-826 PO (18:24)
[2018-02-25] MEDS ORDERED: DOCU-131 PO (18:24)
[2018-02-25] MEDS ORDERED: HYDR-3240 PO (18:24)
[2018-02-25 19:50] VITALS: BP 121/74
[2018-02-25] MEDS: DOXEPIN 25 MG CAPSULE PO SCH (21:31)
[2018-02-26 05:21] VITALS: BP 115/76
[2018-02-26] MEDS: LEVOTHYROXINE 25 MCG TABLET PO SCH (05:23)
[2018-02-26] MEDS: CARVEDILOL 12.5 MG TABLET PO SCH (05:23)
[2018-02-26 07:23] VITALS: BP 130/81
[2018-02-26 07:34] LABS: ALANINE AMINOTRANSFERASE 13 U/L (12-78); ALBUMIN 3.3 g/dL (3.4-5.0); ANION GAP 12 mmol/L (5-15); CHLORIDE 95 mmol/L (98-107)
[2018-02-26 07:38] LABS: ALKALINE PHOSPHATASE 90 U/L (45-117); BILIRUBIN,TOTAL 0.7 mg/dL (0.2-1.0); TOTAL PROTEIN 7.2 g/dL (6.4-8.2)
[2018-02-26] MEDS: SERTRALINE 100MG TABLET PO SCH (08:01)
[2018-02-26] MEDS: GUAIFENESIN ER 600 MG TABLET PO SCH (08:01)
[2018-02-26] MEDS: CINACALCET 30 MG TABLET PO SCH (08:01)
[2018-02-26] MEDS: SEVELAMER CARBONATE 800MG TAB PO SCH (08:01)
[2018-02-26] MEDS: FEBUXOSTAT 40 MG TABLET PO SCH (08:01)
[2018-02-26] MEDS: DABIGATRAN 150 MG CAPSULE PO SCH (08:01)
[2018-02-26] MEDS: GEMFIBROZIL 600 MG TABLET PO SCH (08:01)
[2018-02-26] MEDS: GABAPENTIN 100 MG CAPSULE PO SCH (08:02)
[2018-02-26] MEDS ORDERED: ARANESP 60 MCG/ML **ESRD SQ SCH (10:00)
[2018-02-26] MEDS ORDERED: SEVELAMER CARBONATE 800MG TAB PO SCH (12:00)
== END 2018-02-26 11:52 | disposition home or self-care (01) | DRG 885 ==
LOC: 3E 19:00
PROVIDERS: ADMIT Psychiatry & Neurology Psychosomatic Medicine; ATTEND Psychiatry & Neurology Psychosomatic Medicine
DX: F33.2 Major depressive disorder, recurrent severe without psychotic features (principal); N18.6 End stage renal disease; R45.851 Suicidal ideations; I12.0 Hypertensive chronic kidney disease with stage 5 chronic kidney disease or end stage renal disease; I48.2 Chronic atrial fibrillation; E11.22 Type 2 diabetes mellitus with diabetic chronic kidney disease; D63.1 Anemia in chronic kidney disease; E03.9 Hypothyroidism, unspecified; E11.36 Type 2 diabetes mellitus with diabetic cataract; E78.5 Hyperlipidemia, unspecified; F41.9 Anxiety disorder, unspecified; G47.30 Sleep apnea, unspecified; G89.29 Other chronic pain; N25.0 Renal osteodystrophy; E11.40 Type 2 diabetes mellitus with diabetic neuropathy, unspecified; Z96.619 Presence of unspecified artificial shoulder joint; Z99.2 Dependence on renal dialysis; Z91.19 Patient's noncompliance with other medical treatment and regimen; Z91.15 Patient's noncompliance with renal dialysis; Z79.899 Other long term (current) drug therapy; Z80.9 Family history of malignant neoplasm, unspecified; Z82.49 Family history of ischemic heart disease and other diseases of the circulatory system; Z90.89 Acquired absence of other organs
CPT/HCPCS: 36415; 71045; 80053; 80061; 80069; 81001; 82140; 82306; 82607; 82728; 82746; 83540; 83550; 83735; 83970; 84100; 84439; 84443; 84550; 85025; 85610; 85651; 86592